=== PATIENT | female | born 1975 | race Asian ===

== ENCOUNTER 2020-12-14 18:02 | Emergency (ER) | payer OTHER ==
[~2020-12-14] VITALS: Ht 160 cm; Wt 68.0 kg
== END 2020-12-14 22:30 | disposition home or self-care (01) ==
LOC: ER 18:02
DX: S01.111A Laceration without foreign body of right eyelid and periocular area, initial encounter (principal); W22.8XXA Striking against or struck by other objects, initial encounter; Y93.89 Activity, other specified
CPT/HCPCS: 12011; 70450; 72125; 99283-25